=== PATIENT | female | born 1965 | race Two or more races ===

== ENCOUNTER 2024-01-13 09:36 | Emergency (ER) | payer OTHER ==
[~2024-01-13] VITALS: Ht 162.6 cm; Wt 95.3 kg
[~2024-01-13 09:36] MED LIST: OSEL75CA PO; PROVENTIL3 ML/2.5 M IH; SYNTHROID50 MCG; TUSSI-PRES LIQ118 ML PO
[2024-01-13] MEDS ORDERED: COZAAR50 MG (09:46)
[2024-01-13] MEDS ORDERED: TOPROL XL100 M1 (09:46)
[2024-01-13] MEDS ORDERED: KETOROLAC TROMETHAMINE 60 MG VIAL IM STA (10:24)
[2024-01-13] MEDS ORDERED: KETOROLAC TROMETHAMINE 60 MG VIAL IM ONE (10:28)
[2024-01-13 10:57] LABS: HEMOGLOBIN 13.5 g/dL (12.0-15.00); MEAN CELL VOLUME 88.3 fL (80.00-100.00); MEAN CORPUSCULAR HEMOGLOBIN 30.5 pg (27.00-32.0); MEAN CORPUSCULAR HGB CONC 34.6 g/dl (32.0-36.0); PLATELET COUNT 272 K/uL (150-450); RED BLOOD COUNT 4.41 M/uL (4.00-6.00); RED CELL DISTRIBUTION WIDTH 14.8 % (11.5-14.5)
[2024-01-13 11:21] LABS: ALBUMIN 3.9 gm/dL (3.4-5.0); BILIRUBIN TOTAL 0.75 mg/dL (0.3-1.2); BILIRUBIN,CONJUGATED 0.17 mg/dL (0.0-0.2); BILIRUBIN,UNCONJUGATED 0.58 mg/dL (0.0-0.6); CALCIUM 9.6 mg/dL (8.5-10.1); CREATININE SERUM 0.7 mg/dL (0.55-1.02); GFR 85.94; POTASSIUM 3.99 mEq/L (3.5-5.1); TOTAL PROTEIN 7.1 gm/dL (6.4-8.2)
[2024-01-13 11:28] LABS: URINE BACTERIA 375.3 uL (0.0-1933); URINE EPITHELIAL CELLS 8.6 uL (0.0-38.8); URINE WBC 27.2 uL (0.0-23.2)
[2024-01-13 11:44] LABS: URINE RBC 0.7 uL (0.0-20.8)
[2024-01-13 11:51] LABS: URINE BILIRRUBIN NEGATIVE (NEGATIVE); URINE BLOOD NEGATIVE; URINE GLUCOSE NEGATIVE (NEGATIVE); URINE KETONE NEGATIVE (NEGATIVE); URINE LEUKOCYTE MODERATE; URINE NITRATE NEGATIVE; URINE PROTEIN NEGATIVE (NEGATIVE); URINE UROBILINOGEN 0.2 E.U./dl
[2024-01-13 11:55] LABS: URINE APPEARANCE SL CLOUDY; URINE COLOR YELLOW
== END 2024-01-13 13:58 | disposition home or self-care (01) ==
LOC: ER 09:37
PROVIDERS: General Practice
DX: R07.89 Other chest pain (principal); I10 Essential (primary) hypertension; Z88.1 Allergy status to other antibiotic agents; Z91.013 Allergy to seafood

== ENCOUNTER 2024-03-10 13:20 | Emergency (ER) | payer OTHER ==
[~2024-03-10] VITALS: Ht 162.6 cm; Wt 90.7 kg
[~2024-03-10 13:20] MED LIST changes: +COZAAR50 MG; +TOPROL XL100 M1
[2024-03-10] MEDS ORDERED: KETOROLAC TROMETHAMINE 60 MG VIAL IM STA (14:47)
[2024-03-10] MEDS ORDERED: KETOROLAC TROMETHAMINE 60 MG VIAL IM ONE (15:11)
[2024-03-10 15:51] LABS: HEMATOCRIT 39.8 % (36.0-45.00); HEMOGLOBIN 13.7 g/dL (12.0-15.00); MEAN CELL VOLUME 91.2 fL (80.00-100.00); MEAN CORPUSCULAR HEMOGLOBIN 31.5 pg (27.00-32.0); MEAN CORPUSCULAR HGB CONC 34.5 g/dl (32.0-36.0); PLATELET COUNT 293 K/uL (150-450); RED BLOOD COUNT 4.36 M/uL (4.00-6.00); RED CELL DISTRIBUTION WIDTH 14.9 % (11.5-14.5)
[2024-03-10 16:12] LABS: CALCIUM 9.8 mg/dL (8.5-10.1); CREATININE SERUM 0.65 mg/dL (0.55-1.02); GFR 93.62; POTASSIUM 4.08 mEq/L (3.5-5.1)
== END 2024-03-10 17:22 | disposition home or self-care (01) ==
LOC: ER 13:21
PROVIDERS: General Practice
DX: M94.0 Chondrocostal junction syndrome [Tietze] (principal); R07.9 Chest pain, unspecified; E03.8 Other specified hypothyroidism; J45.909 Unspecified asthma, uncomplicated; Z91.013 Allergy to seafood; Z88.8 Allergy status to other drugs, medicaments and biological substances